=== PATIENT | female | born 1955 | race African-American/Black ===

== ENCOUNTER 2025-01-14 07:22 | Day surgery (SDC) | payer OTHER ==
[2025-01-12 11:35] VITALS: BMI 32.2
[2025-01-14 08:08] VITALS: TEMP 97.2
[2025-01-14] MEDS ORDERED: ONDANSETRON 4 MG/2 ML VIAL ONE (09:30)
[2025-01-14] MEDS: ONDANSETRON 4 MG/2 ML VIAL IVPB ONE (09:32)
[2025-01-14 09:39] VITALS: RESP 18
[2025-01-14 10:37] VITALS: BP 120/72; PULSE 78
== END 2025-01-14 10:30 | disposition home or self-care (01) ==
LOC: FASU-ENDO 07:22
PROVIDERS: ATTEND Internal Medicine Gastroenterology
PROC: 0DBN8ZX Excision of Sigmoid Colon, Via Natural or Artificial Opening Endoscopic, Diagnostic (ICD-10-PCS; 2025-01-14)
PROC: 0DBM8ZX Excision of Descending Colon, Via Natural or Artificial Opening Endoscopic, Diagnostic (ICD-10-PCS; principal; 2025-01-14 08:49)
DX: K52.89 Other specified noninfective gastroenteritis and colitis (principal); K64.1 Second degree hemorrhoids; K57.30 Diverticulosis of large intestine without perforation or abscess without bleeding; K63.89 Other specified diseases of intestine
CPT/HCPCS: 88305-TC